=== PATIENT | male | born 1965 | race Caucasian/White ===

== ENCOUNTER 2016-03-04 18:48 | Inpatient (IN) | payer MEDICAID, OTHER ==
[~2016-03-04] VITALS: Ht 167.6 cm; Wt 97.8 kg
--- NOTE | 2016-03-04 19:04 | ERA ---
ER Documentation Chief Complaint Date/Time DATE: 03/04/16 TIME: 19:04 Chief Complaint rectal bleeding cont; started about 1 hour ago HPI The patient is a 51-year-old male, presenting to the ER because of profuse anal bleeding that began about an hour and a half prior to arrival. He felt anal bump for the last 4 days. Today while he was walking, he is slowly had rectal bleeding. It was bright red blood. He denies syncope, near syncope, neck pain , chest pain, abdominal pain, vomiting, diarrhea. He complains of constipation. He smokes and drinks socially Past medical history: None Past surgical history: Left thumb partial amputation ROS All systems reviewed and are negative except as per history of present illness. Medications Home Meds No Active Prescriptions or Reported Meds Allergies Allergies: Coded Allergies: No Known Allergy (Unverified , 03/04/16) Physical Exam Vitals Vital Signs Date Time Temp Pulse Resp B/P Pulse Ox O2 Delivery O2 Flow Rate FiO2 03/04/16 20:16 75 20 141/98 98 Nasal Cannula 2.0 03/04/16 19:39 78 16 143/100 98 Nasal Cannula 2.0 03/04/16 19:38 Nasal Cannula 2 03/04/16 18:57 97.8 90 18 144/98 100 Physical Exam Const: No acute distress. Head: Atraumatic. Eyes: Normal Conjunctiva. ENT: Normal External Ears, Nose and Mouth. Neck: Full range of motion. No meningismus. Resp: Clear to auscultation bilaterally. Cardio: Regular rate and rhythm, no murmurs. Abd: Soft, non distended, normal bowel sounds, non tender. Skin: No petechiae or rashes. Back: No midline or flank tenderness. Ext: No cyanosis, or edema. Neur: Awake and alert. No focal deficit Psych: Normal Mood and Affect. Rectal: Active bleeding from a thrombosed internal hemorrhoid, clots were evacuated Result Diagram: 03/04/16192903/04/161929 Results 24 hrs Laboratory Tests Test 03/04/16 19:30 Activated Partial Thromboplast Time 27.4Sec Alanine Aminotransferase (ALT/SGPT) 35IU/L Albumin 4.3g/dl Albumin/Globulin Ratio 1.19 Alkaline Phosphatase 71IU/L Anion Gap 17 Aspartate Amino Transf (AST/SGOT) 35IU/L Basophils # 0.010^3/ul Basophils % 0.5% Blood Urea Nitrogen 19mg/dl Calcium Level 9.3mg/dl Carbon Dioxide Level 23mmol/L Chloride Level 105mmol/L Creatinine 1.03mg/dl Direct Bilirubin 0.00mg/dl Eosinophils # 0.610^3/ul Eosinophils % 6.3% Globulin 3.60g/dl Glucose Level 93mg/dl Hematocrit 38.7% Hemoglobin 13.3g/dl INR International Normalized Ratio 0.85 Indirect Bilirubin 0.1mg/dl Lymphocytes # 2.410^3/ul Lymphocytes % 25.0% Mean Corpuscular Hemoglobin 31.5pg Mean Corpuscular Hemoglobin Concent 34.4g/dl Mean Corpuscular Volume 91.7fl Mean Platelet Volume 7.6fl Monocytes # 0.810^3/ul Monocytes % 8.3% Neutrophils # 5.710^3/ul Neutrophils % 59.9% Nucleated Red Blood Cells # 0.010^3/ul Nucleated Red Blood Cells % 0.0/100WBC Platelet Count 26034^3/UL Potassium Level 4.4mmol/L Prothrombin Time 11.6Sec Prothrombin Time Ratio 0.9 Red Blood Count 4.2310^6/ul Red Cell Distribution Width 12.8% Sodium Level 141mmol/L Total Bilirubin 0.1mg/dl Total Protein 7.9g/dl White Blood Count 9.610^3/ul Current Medications Medications (Trade) Dose Ordered Sig/Justus Route PRN Reason Start Time Stop Time Status Last Admin Dose Admin Sodium Chloride (NS) 1,000 ml @ 1,000 mls/hr Q1H ONCE IV 03/04/16 20:00 03/04/16 20:59 03/04/16 20:10 Procedures/MDM EKG: Read by emergency physician Rate/Rhythm: Normal Sinus Rhythm 70 beats per min QRS, ST, T-waves: No ST elevation, no T wave inversion Impression: Normal EKG MEDICAL MAKING DECISION: The patient is a 51-year-old male, presenting with acute rectal bleeding for both internal hemorrhoids. The bleeding has stopped after clots were evacuated. The differential diagnoses considered include but are not limited to carcinoma, polyp, hemorrhoid, fissure, diverticulosis, angiodysplasia. Departure Diagnosis: Primary Impression: Internal thrombosed hemorrhoids Additional Impression: Anemia Condition: Stable Comments Consultation: I discussed the patient with the on-call surgeon Dr. Cabrera at 8: 25 PM, who was made aware of the labs, the treatment, the patient condition. he accepted the consult I discussed the findings with the patient. I discussed the patient with the on- call hospitalist Dr. Brenner who was made aware of the lab, the treatment, the patient condition. The patient is admitted to medical surgery bed at 8:30 PM The patient's blood pressure was elevated (>120/80) but appears stable without evidence of hypertension emergency or urgency. The patient was counseled about the risks of hypertension and urged to pursue outpatient monitoring and therapy within a week after discharge with their primary care physician. BUDDY EMMANUEL MD Mar 04, 2016 19:04
[2016-03-04 19:57] LABS: ALBUMIN 4.3 g/dl (3.3-4.9)
[2016-03-04 19:58] LABS: INR 0.85; POTASSIUM 4.4 mmol/L (3.5-5.1); PROTIME 11.6 Sec (12.2-14.2); PT RATIO 0.9
[2016-03-04 19:59] LABS: PARTIAL THROMBOPLASTIN TIME 27.4 Sec (25.0-35.0)
[2016-03-04 20:00] LABS: BILIRUBIN,INDIRECT 0.1 mg/dl (0-1.1); BILIRUBIN,TOTAL 0.1 mg/dl (0.2-1.3); CREATININE 1.03 mg/dl (0.61-1.24)
[2016-03-04] MEDS ORDERED: SOD CHLORIDE 0.9% 1,000 ML IV ONE (20:00)
[2016-03-04 20:01] LABS: ALBUMIN/GLOBULIN RATIO 1.19; CALCIUM 9.3 mg/dl (8.4-10.2); TOTAL PROTEIN 7.9 g/dl (6.1-8.1)
[2016-03-04 20:07] LABS: BASOPHILS % 0.5 % (0.0-2.0); EOSINOPHILS # 0.6 10^3/ul (0.0-0.5); EOSINOPHILS % 6.3 % (0.0-7.0); HEMATOCRIT 38.7 % (42.0-52.0); HEMOGLOBIN 13.3 g/dl (14.0-18.0); LYMPHOCYTES # 2.4 10^3/ul (0.8-2.9); MEAN CORPUSCULAR HEMOGLOBIN 31.5 pg (29.0-33.0); MEAN CORPUSCULAR HGB CONC 34.4 g/dl (32.0-37.0); MEAN CORPUSCULAR VOLUME 91.7 fl (82.0-101.0); MEAN PLATELET VOLUME 7.6 fl (7.4-10.4); MONOCYTE # 0.8 10^3/ul (0.3-0.9); MONOCYTES % 8.3 % (0.0-11.0); NEUTROPHIL # 5.7 10^3/ul (1.6-7.5); NEUTROPHILS % 59.9 % (39.0-77.0); PLATELET COUNT 250 10^3/UL (140-440); RED BLOOD COUNT 4.23 10^6/ul (4.70-6.10); RED CELL DISTRIBUTION WIDTH 12.8 % (11.5-14.5); UNCORRECTED WBC 9.6 10^3/ul (4.8-10.8); WHITE BLOOD COUNT 9.6 10^3/ul (4.8-10.8)
[2016-03-04 20:11] LABS: CONDITION 1
[2016-03-04 22:16] VITALS: BP 155/99; PULSE 80; RESP 18; Ht 167.6 cm; Wt 97.8 kg
[2016-03-04] MEDS ORDERED: ACETAMINOPHEN 325 MG TAB PO PRN (23:30)
[2016-03-04] MEDS ORDERED: morphine 4 MG/ML VIAL IV PRN (23:30)
[2016-03-04] MEDS ORDERED: ONDANSETRON 4 MG INJ IV PRN (23:30)
[2016-03-05 05:54] LABS: BASOPHILS % 0.7 % (0.0-2.0); EOSINOPHILS # 0.6 10^3/ul (0.0-0.5); EOSINOPHILS % 7.8 % (0.0-7.0); HEMATOCRIT 37.6 % (42.0-52.0); HEMOGLOBIN 13.1 g/dl (14.0-18.0); LYMPHOCYTES # 1.8 10^3/ul (0.8-2.9); LYMPHOCYTES % 25.5 % (15.0-51.0); MEAN CORPUSCULAR HEMOGLOBIN 32.2 pg (29.0-33.0); MEAN CORPUSCULAR HGB CONC 34.9 g/dl (32.0-37.0); MEAN CORPUSCULAR VOLUME 92.4 fl (82.0-101.0); MEAN PLATELET VOLUME 7.4 fl (7.4-10.4); MONOCYTE # 0.5 10^3/ul (0.3-0.9); MONOCYTES % 6.9 % (0.0-11.0); NEUTROPHIL # 4.2 10^3/ul (1.6-7.5); NEUTROPHILS % 59.1 % (39.0-77.0); PLATELET COUNT 221 10^3/UL (140-440); RED BLOOD COUNT 4.07 10^6/ul (4.70-6.10); RED CELL DISTRIBUTION WIDTH 12.9 % (11.5-14.5); UNCORRECTED WBC 7.1 10^3/ul (4.8-10.8); WHITE BLOOD COUNT 7.1 10^3/ul (4.8-10.8)
[2016-03-05 06:11] LABS: CONDITION 1
[2016-03-05 06:15] LABS: ALBUMIN 3.6 g/dl (3.3-4.9)
[2016-03-05 06:16] LABS: POTASSIUM 4.2 mmol/L (3.5-5.1)
[2016-03-05 06:18] LABS: ALBUMIN/GLOBULIN RATIO 1.2; BILIRUBIN,INDIRECT 0.6 mg/dl (0-1.1); BILIRUBIN,TOTAL 0.6 mg/dl (0.2-1.3); CREATININE 0.94 mg/dl (0.61-1.24); TOTAL PROTEIN 6.6 g/dl (6.1-8.1)
[2016-03-05 06:19] LABS: CALCIUM 8.7 mg/dl (8.4-10.2); MAGNESIUM 2.1 mg/dl (1.7-2.5)
[2016-03-05 07:48] VITALS: BP 146/98; RESP 18
--- NOTE | 2016-03-05 13:47 | PN ---
Date/Time of Note Date/Time of Note DATE: 03/05/16 TIME: 13:46 Assessment/Plan VTE Prophylaxis VTE Prophylaxis Intervention: SCD's Lines/Catheters IV Catheter Type (from [facility]): Saline Lock Assessment/Plan Chief Complaint/Hosp Course Assessment and plan 1. Rectal bleeding secondary to internal thrombosed hemorrhoids. Patient currently with packing in place. Surgeon consulted by ER physician. We'll follow -up with recommendations. Monitor H&H for now. Transfuse PRBC as needed. 2. Anemia secondary to #1. H&H remained stable at present. No need for transfusion at this time. We'll monitor for now. 3. Essential hypertension. We'll provide with antihypertensives for systolic greater than 160. DVT prophylaxis: His SCDs Disposition and plan: Continue to monitor H&H. Await surgical input. Continue inpatient monitoring. Discussed plan of care with Dr. Del Cid Problems: Subjective 24 Hr Interval Summary Free Text/Dictation Denies any abdominal pain. Appears comfortable at present. Exam/Review of Systems Vital Signs Vitals Vital Signs Date Time Temp Pulse Resp B/P Pulse Ox O2 Delivery O2 Flow Rate FiO2 03/05/16 07:48 97.9 64 18 146/98 98 03/04/16 22:16 Room Air 03/04/16 20:16 2.0 Intake and Output 03/04/16 03/04/16 03/05/16 14:59 22:59 06:59 Intake Total 100 ml Output Total 1100 ml Balance -1000 ml Exam General: No acute signs or symptoms of distress Eyes: pupils equal round, Anicteric sclera Neck: Supple nontender, no JVD Cardiac: S1, S2 auscultated, regular rhythm and rate Pulmonary: No coarse rhonchi or breathing auscultated GI: Abdomen soft nontender nondistended, bowel sounds active. Noted with saturated packing in rectum Extremities: No edema bilateral lower extremities Skin: Clean dry and intact Neurologic: Alert to person place and time and situation Results Result Diagram: 03/05/16 0515 03/05/16 0515 Results 24 hrs Laboratory Tests Test 03/04/16 19:30 03/05/16 05:15 Activated Partial Thromboplast Time 27.4 Alanine Aminotransferase (ALT/SGPT) 35 32 Albumin 4.3 3.6 Albumin/Globulin Ratio 1.19 1.20 Alkaline Phosphatase 71 68 Anion Gap 17 H 12 Aspartate Amino Transf (AST/SGOT) 35 31 Basophils # 0.0 0.0 Basophils % 0.5 0.7 Blood Urea Nitrogen 19 14 Calcium Level 9.3 8.7 Carbon Dioxide Level 23 26 Chloride Level 105 105 Creatinine 1.03 0.94 Direct Bilirubin 0.00 0.00 Eosinophils # 0.6 H 0.6 H Eosinophils % 6.3 7.8 H Globulin 3.60 H 3.00 Glucose Level 93 97 Hematocrit 38.7 L 37.6 L Hemoglobin 13.3 L 13.1 L INR International Normalized Ratio 0.85 Indirect Bilirubin 0.1 0.6 Lymphocytes # 2.4 1.8 Lymphocytes % 25.0 25.5 Mean Corpuscular Hemoglobin 31.5 32.2 Mean Corpuscular Hemoglobin Concent 34.4 34.9 Mean Corpuscular Volume 91.7 92.4 Mean Platelet Volume 7.6 7.4 Monocytes # 0.8 0.5 Monocytes % 8.3 6.9 Neutrophils # 5.7 4.2 Neutrophils % 59.9 59.1 Nucleated Red Blood Cells # 0.0 0.0 Nucleated Red Blood Cells % 0.0 0.0 Platelet Count 250 221 Potassium Level 4.4 4.2 Prothrombin Time 11.6 L Prothrombin Time Ratio 0.9 Red Blood Count 4.23 L 4.07 L Red Cell Distribution Width 12.8 12.9 Sodium Level 141 139 Total Bilirubin 0.1 L 0.6 Total Protein 7.9 6.6 # White Blood Count 9.6 7.1 # Blood Morphology Comment Magnesium Level 2.1 Phosphorus Level 4.0 Medications Medications Current Medications Morphine Sulfate (morphine) 3 mg Q4H PRN IV PAIN; Start 03/04/16 at 23:30 Ondansetron HCl (Zofran Inj) 4 mg Q6H PRN IV NAUSEA AND/OR VOMITING; Start at 23:30 Acetaminophen (Tylenol Tab) 650 mg Q6H PRN PO PAIN AND OR ELEVATED TEMP; Start 03/04/16 at 23:30 Influenza Virus Vaccine (Fluzone) 0.5 ml ONCE ONCE IM* ; Start 03/07/16 at 09:00 ; Stop 03/07/16 at 09:01 LIZZETTE MADDOX Mar 05, 2016 13:46
--- NOTE | 2016-03-05 15:19 | CONS ---
Date/Time of Note Date/Time of Note DATE: 03/05/16 TIME: 15:18 Assessment/Plan Assessment/Plan Additional Assessment/Plan [facility] INITIAL INPATIENT CONSULTATION NOTE ASSESSMENT AND PLAN: A very-pleasant 51-year-old gentleman with past medical history significant for BMI 34.8 and no prior history of rectal bleeding, who was admitted to [facility] through ED on 03/04/2016 with signs and symptoms consistent with anal bleeding likely from hemorrhoids. This process stopped sometime shortly before admission to the hospital and currently the patient has been stable. There is currently no indication for acute surgical intervention. My recommendation would be to continue observing the patient and once medically stable, to get discharged home with plans for increasing amount of fiber in his diet to combat patient and with the goal of having one soft bulky bowel movement per day in order to help prevent further issues with his hemorrhoids. More often than not, these hemorrhoidal issues will resolve on their own without operative intervention. Certainly if there are more episodes, I would recommend surgical evaluation with hemorrhoidectomy. I explained the anatomy as well as the natural history and pathophysiology of this disease to the patient and family in detail and reviewed the reasoning behind my recommendations. Patient and family appeared to understand and agreed with plans. With above assessment, I've recommended the followin. Started regular diet with high fiber content 2. Observe in-house and check labs, with plans of possible discharge home tomorrow 3. Follow-up with primary care physician 4. Needs to have more healthier bowel habits with the goal of 1 bulky soft bowel movement per day which can be achieved by increasing amount of fiber in the diet 5. Consideration for gastroenterology involvement both inpatient as well as outpatient Thank you very much for having me involved in the care of this very pleasant gentleman and his wonderful family. I will continue to follow him along with you closely and will be available to answer any questions at area code [phone]. TOTAL VISIT TIME: 45 minutes of which more than half was spent in [id number] discussion with the patient, discussions with family, as well as coordination of care between multiple physicians and providers. Disclaimer: Inadvertent spelling and grammatical errors are likely due to EHR/ dictation software use and do not reflect on the quality of delivered patient care. Also, please note that the electronic time recorded on this node does not necessarily reflect the actual time of the visit. PLACE OF SERVICE: [facility], sixth floor DATE OF CONSULTATION: 03/05/2016 HISTORY OF PRESENT ILLNESS: The patient is a very pleasant 51-year-old gentleman with past medical history significant for BMI 34.8 and no prior history of rectal bleeding, who was admitted to [facility] through ED on 03/04/2016 with signs and symptoms consistent with anal bleeding. He was admitted and his hemoglobin remained stable without further bleeding from the anus. Today, I had a chance to visit with the patient and do a complete H&P. I also gathered some of my information through a careful review of the available data. Patient does not report any hematemesis or blood in the stool or urine in the past. Last bowel movement was yesterday as well as flatus. No reported chronic issues with constipation or diarrhea. No changes in hearing or vision, difficulty with breathing or swallowing, prior cardiopulmonary disease new skin rashes, joint pain, musculoskeletal disease, neurologic, psychiatric, or psychologic problems. Patient described no perianal pain. At my visit, the patient did not have any significant pain complaints. PAST MEDICAL HISTORY 1. BMI 34.8 PAST SURGICAL HISTORY 1. 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 - Tob ; - ETOH; - IVDU FAMILY HISTORY: There are no significant medical, surgical or oncologic issues in the family as reported by the patient or reflected in the chart. REVIEW OF SYSTEMS: Other than mentioned above, there were no other pertinent positives or pertinent negatives in an otherwise complete 14 point review of systems. PHYSICAL EXAMINATION GENERAL: The patient appears to be a very pleasant gentleman of descent lying in bed, appearing stated age, BMI 34.8 and otherwise in no acute distress. VITAL SIGNS: AVSS (please also see below) HEENT: Normocephalic and atraumatic. Extraocular muscles and hearing are grossly intact bilaterally and symmetrically. Sclerae are nonicteric. Oral cavity is clear; oral mucosa appear to be pink and moist. Dentition: fair. NECK: Supple. There is no lymphadenopathy or JVD. There is no submental, submandibular or supraclavicular lymphadenopathy. CHEST: Rises symmetrically with each breath; patient is breathing comfortably. There are no audible wheezes, rales or rhonchi on the gross exam. HEART: Pulse is regular and palpable on the right wrist. Capillary refill is normal. Carotid pulses are palpable bilaterally and symmetrically in the neck. EXTREMITIES: Lower extremities contain no pitting edema around the ankles bilaterally and symmetrically. ABDOMEN: Abdomen is soft, nontender and nondistended. No evidence of ascites, organomegaly, caput medusae, engorged subcutaneous veins, or other abnormalities. There are no peritoneal signs or guarding. Rectal exam demonstrated normal sphincter tone and mild blood in the rectum without any active bleeding. Hint of small hemorrhoidal tissue in the inner canal and no significant external hemorrhoids. SKIN: Appears to be pink and feels warm to touch. NEUROLOGIC: Awake, alert, and follows commands appropriately. LABORATORY DATA: See below IMAGING: See electronic chart. Please note that I've personally reviewed all pertinent available images and I agree in general with their overall reported findings. Consultation Date/Type/Reason Admit Date/Time Mar 04, 2016 at 22:07 Social History Smoking Status: Current some day smoker Exam/Review of Systems Vital Signs Vitals Vital Signs Date Time Temp Pulse Resp B/P Pulse Ox O2 Delivery O2 Flow Rate FiO2 03/05/16 07:48 97.9 64 18 146/98 98 03/04/16 22:16 Room Air 03/04/16 20:16 2.0 Intake and Output 03/04/16 03/04/16 03/05/16 15:00 23:00 07:00 Intake Total 100 ml Output Total 1100 ml Balance -1000 ml Results Result Diagram: 03/05/16 0515 03/05/16 0515 Results 24 hrs Laboratory Tests Test 03/04/16 19:30 03/05/16 05:15 Activated Partial Thromboplast Time 27.4 Alanine Aminotransferase (ALT/SGPT) 35 32 Albumin 4.3 3.6 Albumin/Globulin Ratio 1.19 1.20 Alkaline Phosphatase 71 68 Anion Gap 17 H 12 Aspartate Amino Transf (AST/SGOT) 35 31 Basophils # 0.0 0.0 Basophils % 0.5 0.7 Blood Urea Nitrogen 19 14 Calcium Level 9.3 8.7 Carbon Dioxide Level 23 26 Chloride Level 105 105 Creatinine 1.03 0.94 Direct Bilirubin 0.00 0.00 Eosinophils # 0.6 H 0.6 H Eosinophils % 6.3 7.8 H Globulin 3.60 H 3.00 Glucose Level 93 97 Hematocrit 38.7 L 37.6 L Hemoglobin 13.3 L 13.1 L INR International Normalized Ratio 0.85 Indirect Bilirubin 0.1 0.6 Lymphocytes # 2.4 1.8 Lymphocytes % 25.0 25.5 Mean Corpuscular Hemoglobin 31.5 32.2 Mean Corpuscular Hemoglobin Concent 34.4 34.9 Mean Corpuscular Volume 91.7 92.4 Mean Platelet Volume 7.6 7.4 Monocytes # 0.8 0.5 Monocytes % 8.3 6.9 Neutrophils # 5.7 4.2 Neutrophils % 59.9 59.1 Nucleated Red Blood Cells # 0.0 0.0 Nucleated Red Blood Cells % 0.0 0.0 Platelet Count 250 221 Potassium Level 4.4 4.2 Prothrombin Time 11.6 L Prothrombin Time Ratio 0.9 Red Blood Count 4.23 L 4.07 L Red Cell Distribution Width 12.8 12.9 Sodium Level 141 139 Total Bilirubin 0.1 L 0.6 Total Protein 7.9 6.6 # White Blood Count 9.6 7.1 # Blood Morphology Comment Magnesium Level 2.1 Phosphorus Level 4.0 Medications Medications Current Medications Morphine Sulfate (morphine) 3 mg Q4H PRN IV PAIN; Start 03/04/16 at 23:30 Ondansetron HCl (Zofran Inj) 4 mg Q6H PRN IV NAUSEA AND/OR VOMITING; Start at 23:30 Acetaminophen (Tylenol Tab) 650 mg Q6H PRN PO PAIN AND OR ELEVATED TEMP; Start 03/04/16 at 23:30 Influenza Virus Vaccine (Fluzone) 0.5 ml ONCE ONCE IM* ; Start 03/07/16 at 09:00 ; Stop 03/07/16 at 09:01 MARY LEE M.D. Mar 05, 2016 15:18
[2016-03-05 20:10] VITALS: BP 134/87; RESP 16
--- NOTE | 2016-03-05 21:05 | HP ---
DATE OF ADMISSION: 03/04/2016 TIME SEEN: 2300 CHIEF COMPLAINT: Bright red blood per rectum. HISTORY OF PRESENT ILLNESS: The patient is a 51-year-old male with a history of gastritis who prese nted to the emergency department having had bright red blood per rectum. He stated that he had 2 or 3 episodes, one of them occurred while he was walking. And thus, he decided to come here for evalu ation. In the ER, his hemoglobin . In the ER, rectal examination was done with evacuation of clots, and the patient has been diagnosed with thrombosed internal hemorrhoid and admitted fo r further management. Dr. Almazan, the permastone applicator surgeon, has been notified about the patient's presen tation by the ER physician. REVIEW OF SYSTEMS: A 12-point review was performed . PAST MEDICAL HISTORY: As per HPI. PAST SURGICAL HISTORY: . ALLERGIES: NO KNOWN DRUG ALLERGIES. HOME MEDICATIONS: None. PHYSICAL EXAMINATION: VITAL SIGNS: Stable. GENERAL: No acute distress. He is cooperative. He is Austrian-speaking only, but answering [employer] ns appropriately per spanish interpreter/translator. HEENT: No obvious head deformity. No scleral icterus. Pupils react to light. Extraocular muscles intact. CARDIOVASCULAR: Regular rate and rhythm. No extra sounds heard. . ABDOMEN: Soft. There is discomfort in the lower abdominal region with deep palpation without guarding, rebound tenderness, or rigidity. There are positive bowel sounds. EXTREMITIES: No edema. RECTAL: The area is currently . LABORATORY: Hemoglobin 13.3, otherwise . IMPRESSION: ____ rectum, bleeding hemorrhoids. PLAN: Will keep n.p.o. for now. during rectal examination in the ER for no oleary rgeon. provide monitor his hemoglobin as well as . Dictated By: KIERA POST/KATHERINE Conf#: [id number] DID#: [id number]
[2016-03-06 05:56] LABS: BASOPHILS % 0.3 % (0.0-2.0); EOSINOPHILS # 0.6 10^3/ul (0.0-0.5); EOSINOPHILS % 6.3 % (0.0-7.0); HEMATOCRIT 40.6 % (42.0-52.0); HEMOGLOBIN 13.9 g/dl (14.0-18.0); LYMPHOCYTES # 1.8 10^3/ul (0.8-2.9); LYMPHOCYTES % 18.9 % (15.0-51.0); MEAN CORPUSCULAR HEMOGLOBIN 31.7 pg (29.0-33.0); MEAN CORPUSCULAR HGB CONC 34.2 g/dl (32.0-37.0); MEAN CORPUSCULAR VOLUME 92.7 fl (82.0-101.0); MEAN PLATELET VOLUME 7.4 fl (7.4-10.4); MONOCYTE # 0.7 10^3/ul (0.3-0.9); MONOCYTES % 7.9 % (0.0-11.0); NEUTROPHIL # 6.3 10^3/ul (1.6-7.5); NEUTROPHILS % 66.6 % (39.0-77.0); PLATELET COUNT 238 10^3/UL (140-440); RED BLOOD COUNT 4.38 10^6/ul (4.70-6.10); RED CELL DISTRIBUTION WIDTH 12.8 % (11.5-14.5); UNCORRECTED WBC 9.4 10^3/ul (4.8-10.8); WHITE BLOOD COUNT 9.4 10^3/ul (4.8-10.8)
[2016-03-06 06:04] LABS: POTASSIUM 4.3 mmol/L (3.5-5.1)
[2016-03-06 06:06] LABS: CREATININE 1.08 mg/dl (0.61-1.24)
[2016-03-06 06:07] LABS: CALCIUM 9.1 mg/dl (8.4-10.2)
[2016-03-06 06:46] LABS: CONDITION 1
[2016-03-06 07:27] VITALS: BP 125/86; RESP 18
[2016-03-06] MEDS ORDERED: DOCU-144 PO (08:58)
[2016-03-06] MEDS ORDERED: SENN-53 PO (08:58)
--- NOTE | 2016-03-06 09:18 | PDOCDIS ---
Discharge Instructions DIAGNOSIS Discharge Diagnosis: 1. Rectal bleed from hemorrhoids 2. Anemia secondary to #1 CONDITION Patient Condition: Stable HOME CARE INSTRUCTIONS: Diet Instructions: Low Fat /Cholesterol FOLLOW UP/APPOINTMENTS Appointments 1. Follow-up with your primary care provider within a week LIZZETTE MADDOX Mar 06, 2016 09:18
[2016-03-06] MEDS ORDERED: POLYETHYLENE GLYCOL 17 GM PACKET PO SCH (09:30)
[2016-03-06] MEDS ORDERED: DOCUSATE SODIUM 100 MG CAP PO SCH (09:30)
--- NOTE | 2016-03-06 11:35 | PN ---
Date/Time of Note Date/Time of Note DATE: 03/06/16 TIME: 11:31 Assessment/Plan Lines/Catheters IV [facility]from [facility] Saline Lock Assessment/Plan Assessment/Plan [facility] Inpatient Progress Note Date of Service: 03/06/2016 Today's Assessment & Plan: Overall stable and doing well. No further issues with major bleeding from the rectum. Appears to have stopped. No indication for acute surgical intervention. Okay to discharge from my standpoint. With above assessment, I've recommended the following for today: 1. Okay to discharge from my standpoint. Very important that the patient has a primary care physician for short-term follow-up as well as strong recommendation for gastroenterology consultation for outpatient colonoscopy and evaluation. 2. Follow-up with me if any surgical issues are identified during the colonoscopy or if any acute issues arise Thank you again for your great care of this very pleasant omentum and his wonderful family. If there are any questions, please feel free to call me at . TOTAL VISIT TIME: 20 minutes of which more than half was spent in [id number] discussion with the patient as well as coordination of care between multiple physicians and providers. Disclaimer: Inadvertent spelling and grammatical errors are likely due to EHR/ dictation software use and do not reflect on the quality of delivered patient care. Also, please note that the electronic time recorded on this node does not necessarily reflect the actual time of the visit. Updated Clinical Summary: Very pleasant very-pleasant 51-year-old gentleman with past medical history significant for BMI 34.8 and no prior history of rectal bleeding, who was admitted to [facility] through ED on 03/04/2016 with signs and symptoms consistent with anal bleeding likely from hemorrhoids. This process stopped sometime shortly before admission to the hospital and currently the patient has been stable. There is currently no indication for acute surgical intervention. More often than not, these hemorrhoidal issues will resolve on their own without operative intervention. Certainly if there are more episodes, I would recommend surgical evaluation with hemorrhoidectomy. I explained the anatomy as well as the natural history and pathophysiology of this disease to the patient and family in detail and reviewed the reasoning behind my recommendations. Patient and family appeared to understand and agreed with plans. The patient is a very pleasant 51-year-old gentleman with past medical history significant for BMI 34.8 and no prior history of rectal bleeding, who was admitted to [facility] through ED on 03/04/2016 with signs and symptoms consistent with anal bleeding. He was admitted and his hemoglobin remained stable without further bleeding from the anus. My recommendation was to continue observing the patient and once medically stable, to get discharged home with plans for increasing amount of fiber in his diet to combat constipation and with the goal of having one soft bulky bowel movement per day in order to help prevent further issues with his hemorrhoids. Past and present comorbidity list: 1. BMI 34.8 2. Left thumb partial amputation Subjective: No major events or complaints; no abd pain and minimal to no bleeding report from the bottom; no n/v/d; no sob or cp; + flatus; + BM; + activity Objective: Vitals: See below I's & O's: See below Exam: GENERAL: On exam, the patient was standing in his room and appeared to be comfortable and in no acute distress. ABDOMEN: Soft, nontender and nondistended. There are no peritoneal signs or guarding. SKIN: Skin appears to be pink and feels warm to touch. NEUROLOGIC: Patient is awake, alert, and follows commands appropriately. Labs: See below Exam/Review of Systems Vital Signs Vitals Vital Signs Date Time Temp Pulse Resp B/P Pulse Ox O2 Delivery O2 Flow Rate FiO2 03/06/16 07:27 98.6 68 18 125/86 96 03/04/16 22:16 Room Air 03/04/16 20:16 2.0 Intake and Output 03/05/16 03/05/16 03/06/16 15:00 23:00 07:00 Intake Total 720 ml 300 ml Output Total 840 ml 700 ml Balance -120 ml -400 ml Results Result Diagram: 03/06/16 0505 03/06/16 0505 MARY LEE M.D. Mar 06, 2016 11:35
--- NOTE | 2016-03-06 14:41 | DS ---
Date/Time of Note Date/Time of Note DATE: 03/06/16 TIME: 14:37 Discharge Summary Admission/Discharge Info Admit Date/Time Mar 04, 2016 at 22:07 Discharge Date/Time Final Diagnosis 1. Rectal bleeding secondary to internal thrombosed hemorrhoids. 2. Anemia secondary to #1. Patient Condition: Stable Consults 1. Dr. Cesar [facility] Course This is a 51-year-old male with history of gastritis who came to [facility] due to reports of bright red blood per rectum. He did report having 2-3 episodes and that when these episodes occurred while he was walking. He did come to [facility] for further evaluation. Patient was noted to be slightly anemic. However he did not require any blood incisions. We did get surgeon consult. He did have examination in the ER that did have evacuation of clots at that time. He was diagnosed with thrombosed internal hemorrhoids at that time. Surgeon did see the patient but at that time bleeding had subsided significantly. His H&H remained stable. No further surgical intervention was needed. We did continue conservative management. His serial CBC did have stable trend of his H&H. We did get case management involved help plan patient for outpatient PCP. He was instructed to come to the hospital should he have worsening of his rectal bleeding. He was also provided with stool softeners to help him with his bowel movement to help prevent any further strain worsening of hemorrhage. The plan of care was discussed with the patient and patient did verbalize his understanding. On the day of discharge patient was in stable condition Discussed plan of care with Dr. Del Cid Disposition: Home Discharge process time is 40 minutes Home Meds Active Scripts Sennosides* (Senna Lax*) 8.6 Mg Tablet, 1 TAB PO Q12H Y for CONSTIPATION, #30 TAB Prov:LIZZETTE MADDOX 03/06/16 Docusate Sodium* (Colace*) 100 Mg Capsule, 100 MG PO BID, #60 CAP Prov:LIZZETTE MADDOX 03/06/16 Follow-up Plan CONDITION Patient Condition: Stable HOME CARE INSTRUCTIONS: Diet Instructions: Low Fat /Cholesterol FOLLOW UP/APPOINTMENTS Appointments 1. Follow-up with your primary care provider within a week Pending Labs Laboratory Tests Test 03/05/16 15:00 03/06/16 05:05 Stool Occult Blood NEGATIVE (NEGATIVE) Anion Gap 13 (8-16) Basophils # 0.010^3/ul (0.0-0.1) Basophils % 0.3% (0.0-2.0) Blood Morphology Comment Blood Urea Nitrogen 15mg/dl (7-20) Calcium Level 9.1mg/dl (8.4-10.2) Carbon Dioxide Level 29mmol/L (21-31) Chloride Level 103mmol/L (97-110) Creatinine 1.08mg/dl (0.61-1.24) Eosinophils # 0.610^3/ul (0.0-0.5) Eosinophils % 6.3% (0.0-7.0) Glucose Level 94mg/dl (70-220) Hematocrit 40.6% (42.0-52.0) Hemoglobin 13.9g/dl (14.0-18.0) Lymphocytes # 1.810^3/ul (0.8-2.9) Lymphocytes % 18.9% (15.0-51.0) Mean Corpuscular Hemoglobin 31.7pg (29.0-33.0) Mean Corpuscular Hemoglobin Concent 34.2g/dl (32.0-37.0) Mean Corpuscular Volume 92.7fl (82.0-101.0) Mean Platelet Volume 7.4fl (7.4-10.4) Monocytes # 0.710^3/ul (0.3-0.9) Monocytes % 7.9% (0.0-11.0) Neutrophils # 6.310^3/ul (1.6-7.5) Neutrophils % 66.6% (39.0-77.0) Nucleated Red Blood Cells # 0.010^3/ul (0.0-0.0) Nucleated Red Blood Cells % 0.0/100WBC (0.0-0.0) Platelet Count 12846^3/UL (140-440) Potassium Level 4.3mmol/L (3.5-5.1) Red Blood Count 4.3810^6/ul (4.70-6.10) Red Cell Distribution Width 12.8% (11.5-14.5) Sodium Level 141mmol/L (135-144) White Blood Count 9.410^3/ul (4.8-10.8) LIZZETTE MADDOX Mar 06, 2016 14:40
[2016-03-07] MEDS ORDERED: INFLUENZA VIRUS VACCINE 0.5 ML (DISPENSING) IM* ONE (09:00)
== END 2016-03-06 19:00 | disposition home or self-care (01) | DRG 395 ==
LOC: E/R 18:48 → MS2 22:07
PROVIDERS: ADMIT Internal Medicine; ATTEND Internal Medicine
DX: K64.8 Other hemorrhoids (principal); I10 Essential (primary) hypertension; D64.9 Anemia, unspecified; F17.200 Nicotine dependence, unspecified, uncomplicated; Z68.34 Body mass index [BMI] 34.0-34.9, adult
CPT/HCPCS: 36415; 80048; 80053; 82270; 83735; 84100; 85025; 85610; 85730; 86850; 86900; 86901; 93005; J7030

== ENCOUNTER 2016-03-13 11:03 | Outpatient (CLI) | payer MEDICAID ==
[~2016-03-13] VITALS: Ht 168.9 cm; Wt 97.3 kg
[~2016-03-13 11:03] MED LIST: DOCU-144 PO; SENN-53 PO
[2016-03-13 11:11] VITALS: BP 125/77; PULSE 77; RESP 16; Ht 168.9 cm; Wt 97.3 kg
--- NOTE | 2016-03-13 11:21 | PN ---
Date/Time of Note Date/Time of Note DATE: 03/13/16 TIME: 11:21 Outpatient Progress Note Chief Complaint Hemorrhoids/anemia/ HPI Hemorrhoids/chronic in nature, aggravated slight constipation, patient did have rectal bleeding, patient sometime have itching, and pruritus, slightly relieved with Preparation H Anemia/acute on chronic in nature, associated with rectal bleeding, slightly relieved with medication, not issue she did with fatigue, not sure she with the ecchymosis bruises or bleeding, no history of any medical problem, Review of Systems Const: No Fever, no chills, no Wt. loss, no Fatigue, normal appetite, no diaphoresis. Eyes: No pain, no discharge, no redness, no visual change, no foreign body. ENT: No pain, no bleeding, no congestion, no sore throat, no dysphagia, no discharge or rhinitis. Lymph: No adenopathy, no tender nodes, no lymphedema. Resp: No SOB, no cough, no sputum, no wheezing, no chest pain. CV: No chest pain, no palpitaions, no THAO, no PND, no edema. GI: Normal appetite, no pain, no nausea, no vomiting, no diarrhea, no blood, slight constipation. History of hemorrhoid, and rectal bleeding, : No frequency, no urgency, no dysuria, no hematuria, no flank pain, no discharge, no bleeding. Musc: No bone/joint pain, no back pain, no neck pain, no knee pain, no restricted ROM. Skin: No rash, no skin lesions, no erythema, no laceration, no bruising, no pruritus. Neuro: No GONZALEZ, no dizziness, no syncope, no seizure, no focal-weakness. Endo: No polyuria, no polydypsia, no dry-skin, no temp-intolerance. Psych: No hallucinations, no depression, no anxiety, no suicidal ideation. Ext: No edema, no pain, no ulcer, no weakness. Physical Exam Vital Signs Date Time Temp Pulse Resp B/P Pulse Ox O2 Delivery O2 Flow Rate FiO2 03/13/16 11:11 98.0 77 16 125/77 97 Room Air General Appearance: A 51 year-old male who appears well-developed, well- nourished, in no acute distress. HEENT: Head normocephalic, atraumatic. Pupils equal, round, reactive to light and accommodate. Sclerae are no jaundice. Nasal turbinates pink without erythema or nasal discharge. Mucous membranes pink and moist without lesions. Oropharynx clear without any exudate or discharge. NECK: Supple. Trachea midline, No thyromegaly, No cervical lymphadenopathy, No mass, No carotid bruits, No JVD, Carotid pulses 2+ bilaterally. PULMONARY: Clear to auscultaion bilaterally, No retractions, Chest expansion symmetric bilaterally, no rales, no ronchi, no dulness on percussion. CARDIAC: Normal SI and S2, Regular rate and rythm, no murmur, gallop, or rub. GASTROINTESTINAL: Abdomen is soft, non-tender, Non Rigid, No distention, Positive bowel sounds x4 quadrants, Liver normal. SKIN: Warm, dry, no rash, no bruise, no echmosis. EXTREMITIES: Bilateral lower extremities normal, no edema, no phlabitus, pulse palpable, no contracture. MUSCULOSKELETAL: Spine Normal, Non-tender, Normal range of motion, No swelling, no deformity, no clubbing, or cyanosis, the patient has no edema to bilateral lower extremities, dorsalis pedis pulses palpable bilaterally. NEUROLOGIC: The patient is awake, alert, oriented, responding to yes/no questions appropriately, moving all extremities, cranial nerve intact, normal strenght, normal power, normal coordination, normal gait. Allergies Coded Allergies: Penicillins (Verified Allergy, Mild, 03/04/16) PMH Hemorrhoids/anemia/ Social Hx Drinking socially, no smoking at present, no drugs, Family Hx Noncontributory Assessment/Plan Impression Rectal bleeding/hemorrhoids/anemia Plan Continue iron tablet, eat proper diet, milk of magnesia for constipation, and continue Preparation H, Patient will have colonoscopy, and arrangements are being made, to see GI, and if patient needs the surgery will make surgical appointment with Medications Home Meds Active Scripts Sennosides* (Senna Lax*) 8.6 Mg Tablet, 1 TAB PO Q12H Y for CONSTIPATION, #30 TAB Prov:LIZZETTE MADDOX 03/06/16 Docusate Sodium* (Colace*) 100 Mg Capsule, 100 MG PO BID, #60 CAP Prov:LIZZETTE MADDOX 03/06/16 JACOBY GANT MD Mar 13, 2016 11:21
== END 2016-03-13 16:34 | disposition home or self-care (01) ==
LOC: DCC 11:03
PROVIDERS: ATTEND Internal Medicine
DX: K62.5 Hemorrhage of anus and rectum (principal); K64.9 Unspecified hemorrhoids; D64.9 Anemia, unspecified
CPT/HCPCS: G0463